=== PATIENT | male | born 1985 ===

== ENCOUNTER 2019-10-30 11:39 | Emergency (ER) | payer OTHER, SELFPAY ==
[2019-10-30 11:44] VITALS: BP 135/90; PULSE 65; RESP 16; TEMP 37; O2SAT 98; BMI 27.9
--- NOTE | 2019-10-30 12:00 | XRR_ITS ---
PROCEDURE INFORMATION: Exam: XR Left Finger(s) Exam date and time: 10/30/2019 12:07 PM Age: 34 years old Clinical indication: Pain; Finger(s); Patient HX: Puncture injury from a drill to to distal phalange of left first digit. ; Additional info: Left thumb injury TECHNIQUE: Imaging protocol: XR Left fingers. Views: Minimum 2 views. COMPARISON: No relevant prior studies available. FINDINGS: Bones/joints: A small lucent channel is seen extending obliquely from the lateral distal phalanx tuft to the medial distal phalanx body. No joint dislocation. Soft tissues: Several tiny metallic density subcutaneous foreign bodies are present in the medial distal thumb soft tissues near the base of the 1st distal phalanx. XR/XR finger LT min 2V [id number] IMPRESSION: Lucent channel in the distal phalanx which is likely a drill hole. No displaced fracture is seen.
--- NOTE | 2019-10-30 12:08 | W.ED.EXTPRO ---
HPI - Extremity Problem General: Chief complaint: Extremity Injury, Upper Stated complaint: right thumb lac Time Seen by Provider: 10/30/19 11:51 Source: patient Mode of arrival: ambulatory Limitations: no limitations History of Present Illness: HPI Narrative: Patient was drilling holes in the PVC pipe and while he was using it the drill slipped and hit the patient in his left arm causing some damage to the nail and the finger. He has some bleeding and came into the emergency department for evaluation. This happened just before arrival. He is up-to-date on his tetanus vaccine. Associated symptoms: Deny fever(s) or rash Review of Systems General: Reports: 10 or more systems reviewed and unremarkable except in HPI and below Const: Denies: fever(s), chills or body aches Eyes: Denies: change in vision or blurry vision ENMT: Denies: throat pain, enlarged tonsils, odynophagia, hoarseness, mouth pain or swelling of lips/tongue Card: Denies: palpitations, irregular heart rhythm, edema or swelling of feet/ankles Resp: Denies: dyspnea, productive cough or non-productive cough GI: Denies: abdominal pain, nausea or vomiting : Denies: flank pain, dysuria, urinary frequency, urinary urgency or urinary hesitancy Musc: Denies: neck pain, back pain or extremity swelling Skin/Breast: Reports: other (Injury to the left thumb); Denies: rash, pruritus or erythema Neuro: Denies: headache(s), numbness in extremities or weakness in extremities Endo: Denies: polyuria, polydipsia or tired all the time Physical Exam Const: COMMON NORMALS: no acute distress, average body habitus, patient oriented x3, no limitations, healthy appearing, alert and well nourished Neck/C-Spine: COMMON NORMALS: no meningeal signs and no JVD Resp: COMMON NORMALS: normal respiratory effort, No retractions, No use of accessory muscles, clear to auscultation bilaterally and percussion normal AUSCULTATION: clear to auscultation bilaterally PERCUSSION: percussion normal Cardio: COMMON NORMALS: no JVD, regular rate, regular rhythm, S1 normal heart sound present, S2 normal heart sound present, No gallops present (Cardio), No clicks present (Cardio), No murmurs present (Cardio), No rub (Cardio) and Peripheral pulses 2+ throughout RATE: regular rate RHYTHM: regular rhythm HEART SOUNDS: S1 normal heart sound present and S2 normal heart sound present PERIPHERAL PULSES: Peripheral pulses 2+ throughout GI: COMMON NORMALS: Normal to inspection, nondistended, normoactive bowel sounds present, Soft to palpation, non-tender, No hepatosplenomegaly present, no masses and no bruits PALPATION: Yes Soft to palpation and Yes No hepatosplenomegaly present Extremity: COMMON NORMALS: normal to inspection, full ROM, capillary refill normal, no calf tenderness and no pedal edema OTHER: There is a jagged laceration to the medial half of the left thumb. The laceration extends to the nailbed and the skin of the nail. There is no bleeding noted. Neurovascular status is intact. Neuro: COMMON NORMALS: patient oriented x3 SENSORIUM/ORIENTATION: Yes alert MENINGEAL SIGNS: Yes no meningeal signs Skin: COMMON NORMALS: no rashes or lesions noted, no wounds, turgor normal, no jaundice, no petechiae and no mottling GENERAL SKIN EXAM: no rashes or lesions noted and turgor normal Procedures Laceration Laceration 1: Site: hand (left thumb) Side (If applicable): left Size (cm): 2 Description: irregular Depth: simple, single layer (involves skin, nail, nail bed) Local Anesthetic: lidocaine 1% Amount of anesthesia used (mL): 5 Pre-repair: wound explored and irrigated extensively Skin layer closed with: vicryl Size (cm): 5-0 (for skin, 7 sutures) Number of sutures: 7 Technique: simple, interrupted Subcutaneous layer closed with: vicryl Size: 6-0 (nail bed) Number of sutures: 3 Technique: simple, interrupted Course ED course: Patient who presented to the emergency department following a drill injury to his left thumb. He sustained a jagged laceration to his left palm dorsal surface including the nail and the nail bed. On an x-ray did show go down to his bone. He however has no fractures, just a drill hole in the distal phalanx. Nailbed was closed using Vicryl sutures and tissue adhesive. The nail was also attached using tissue adhesive. Skin was closed using 5-0 Vicryl. The skin was just around the nail edges. Prior to suturing the wound was thoroughly irrigated with saline and iodine mixture. About 250 mils of irrigation was done. The patient is up-to-date on his tetanus, he was given a dose of ceftriaxone injection in the emergency department and discharged home with Keflex and pain medication. He is to follow-up with his primary care provider, or the hand surgeon. Consultations: Consultation #1: Dr. Menjivar, hand surgeon at [facility] in [place] and he is happy to see the patient in the clinic. However he thinks the primary care provider can also take care of it. If the patient feels he needs to be seen he can call his office. Time: 14:15 Vital Signs: Vital signs: Vital Signs Temperature 98.6 F 10/30/19 11:44 Pulse Rate 58 L 10/30/19 14:38 Respiratory Rate 17 10/30/19 14:38 Blood Pressure 128/86 10/30/19 14:38 Pulse Oximetry 95 10/30/19 14:38 MDM - Extremity (Nontraumatic) MDM Narrative: Medical decision making narrative: Patient with a laceration to his left thumb that involves the nail nailbed and a drill hole to the distal phalanx. Wounds were successfully closed, nail was reattached using tissue adhesive, wound care instructions given to the patient and he is to follow-up with either his primary care provider or the hand surgeon. He was discharged home with oral antibiotics and oral narcotic pain medication. Medical Records: Attestation: I reviewed the patient's medical records. Imaging Data^: Xray Ortho: Radiologist's impression: [place] [address] XRay Report Signed Patient: Maxine Yang #: [id number] : 1985Acct#:[id number] Age/Sex: 34 / MADM Date: 10/30/19 Loc: ERRoom/Bed: Attending Dr: Ordering Provider/Ordering MD: Arturo Petersen MD, [facility] Date of Service: 10/30/19 Procedure(s): XR finger LT min 2V 12891 Accession Number(s): [id number] Report Number: [id number] PROCEDURE INFORMATION: Exam: XR Left Finger(s) Exam date and time: 10/30/2019 12:07 PM Age: 34 years old Clinical indication: Pain; Finger(s); Patient HX: Puncture injury from a drill to to distal phalange of left first digit. ; Additional info: Left thumb injury TECHNIQUE: Imaging protocol: XR Left fingers. Views: Minimum 2 views. COMPARISON: No relevant prior studies available. FINDINGS: Bones/joints: A small lucent channel is seen extending obliquely from the lateral distal phalanx tuft to the medial distal phalanx body. No joint dislocation. Soft tissues: Several tiny metallic density subcutaneous foreign bodies are present in the medial distal thumb soft tissues near the base of the 1st distal phalanx. XR/XR finger LT min 2V [id number] IMPRESSION: Lucent channel in the distal phalanx which is likely a drill hole. No displaced fracture is seen. Dictated By:Saurav Santos MD Signed By:Saurav Santos MDSigned Date/Time:10/30/19 125 DD/ 1253 Discharge Plan Discharge Patient Disposition: Home Clinical Impression: Laceration of thumb, left, complicated Qualifiers: Encounter type: initial encounter Qualified Code(s): S61.012A - Laceration without foreign body of left thumb without damage to nail, initial encounter Condition: Stable Prescriptions: New Keflex 500 mg capsule 500 mg PO Q6H 7 Days Qty: 28 RF: 0 [place] 5-325 mg tablet 1 tab PO Q8H PRN (Reason: pain) Qty: 20 RF: 0 Discharge Orders: Discharge Order (Routine); Ordered 10/30/19 Ordered By: Arturo Petersen Referrals: Chandrakant Menjivar MD [Referring] - 1-3 days Discharge Diet: Usual diet Discharge Activity: Increase activity as tolerated Patient Instructions: Finger Laceration (ED) Activity Restrictions/Additional Instructions: Return for any new or worsening symptoms. Follow-up with your primary care provider in the next 2 days for further evaluation. If they think you need to see the hand surgeon child nutrition director the office of the hand surgeon in [place]. The name and number is included in your discharge paperwork. Take the antibiotic as prescribed and the pain medicine as needed. Keep your wounds clean and dry. Clean the wounds with soap and water every day and apply an antibiotic ointment to the wound. The sutures used will dissolve so there is no need to have them taken out. Discharge Date/Time: 10/30/19 14:43 Coding Level of Care Code ED Tobacco Packer for Chg Fwd Exam Detailed
[2019-10-30] MEDS: lidocaine 1% INJ 20 mL INTRADERMA (12:30)
[2019-10-30 13:49] VITALS: RESP 18; O2SAT 98
[2019-10-30] MEDS: morphine 4 mg/mL SDV 1 mL IVP (13:49)
[2019-10-30 14:38] VITALS: BP 128/86; PULSE 58; RESP 17; O2SAT 95
[2019-10-30] MEDS: cefTRIAXone 1,000 mg SDV 1000 MG IM (14:44)
== END 2019-10-30 14:43 | disposition home or self-care (01) ==
PROVIDERS: Emergency Provider Family Medicine
DX: S61.012A Laceration without foreign body of left thumb without damage to nail, initial encounter (principal); W29.8XXA Contact with other powered hand tools and household machinery, initial encounter
CPT/HCPCS: 12345; 13131; 73140; 96372; 96374; 96375; 99283; J0696; J2270